=== PATIENT | female | born 1955 | race Caucasian/White ===

== ENCOUNTER 2019-02-01 19:57 | Inpatient (IN) | payer MEDICAID ==
[~2019-02-01] VITALS: Ht 175.3 cm; Wt 64.9 kg
--- NOTE | 2019-02-01 19:57 | NUR ---
Placed in room 01 . Placed on lunchroom monitor, blood pressure machine and pulse oximeter. To gown for exam. Side rails up. Report given to PONCHO BOWIE.
[2019-02-01 20:04] VITALS: BP_SYST 103
--- NOTE | 2019-02-01 20:30 | NUR ---
PT came to the ED from a SNF for SOB and mild distress. Per EMS, pt was stating 80 when they arrived. Started on 15 L nonrebreather. Pt was given a breathing treatment on the way to the ED. Pt is full code. Denies n/v/d or fever. No other complaints/injuries noted. Will cont. to monitor.
--- NOTE | 2019-02-01 20:35 | NUR ---
ER at bedside examining patient.
[2019-02-01] MEDS ORDERED: CALC-823 PO (20:57)
[2019-02-01] MEDS ORDERED: DEXT30DR6 EACH EYE (20:57)
[2019-02-01] MEDS ORDERED: DICL75TA5 PO (20:58)
[2019-02-01] MEDS ORDERED: CLON1TAB12 PO (20:58)
[2019-02-01] MEDS ORDERED: BUSP5TAB3 PO (20:59)
[2019-02-01] MEDS ORDERED: ASM110 INH (21:00)
[2019-02-01] MEDS ORDERED: MULT-1100 PO (21:00)
[2019-02-01] MEDS ORDERED: MOM PO (21:01)
[2019-02-01] MEDS ORDERED: BISA10SU61 RC (21:03)
[2019-02-01] MEDS ORDERED: CRAN450C PO (21:04)
[2019-02-01] MEDS ORDERED: ACET-2165 PO (21:04)
[2019-02-01] MEDS ORDERED: LORA10TA7 PO (21:05)
[2019-02-01] MEDS ORDERED: MONT10TA22 PO (21:06)
[2019-02-01] MEDS ORDERED: ESCI5TAB PO (21:07)
[2019-02-01] MEDS ORDERED: MELA3TAB PO (21:10)
[2019-02-01] MEDS ORDERED: ZOLP10TA2 PO (21:11)
[2019-02-01] MEDS ORDERED: QUET200T PO (21:11)
[2019-02-01] MEDS ORDERED: BEN50 PO (21:12)
[2019-02-01] MEDS ORDERED: [UNRECOGNIZED DRUG - CODE] TP (21:14)
--- NOTE | 2019-02-01 21:14 | NUR ---
Medication reconciliation completed with information provided by [facility]. Any prior medication reconciliation on file was reviewed and corrected.
[2019-02-01] MEDS ORDERED: VANCOMYCIN HCL 1,000 MG in D5W 250 ML IV ONE (21:15)
[2019-02-01] MEDS ORDERED: NS 1000 ML IV.SOLN IV ONE (21:15)
[2019-02-01] MEDS ORDERED: VANCOMYCIN HCL 1000 MG/VIAL IV ONE (21:31)
[2019-02-01 21:56] LABS: HEMATOCRIT 22.6 % (36-48); INR 1.4 (0.8-1.2); MEAN CORPUSCULAR HEMOGLOBIN 24 pg (27-31); MEAN CORPUSCULAR HGB CONC 31 % (32-36); MEAN CORPUSCULAR VOLUME 79 fL (79.0-98.0); PLATELET COUNT (AUTO) 370 K/uL (130-430); PROTHROMBIN TIME 13.8 SECS (9.5-12.5); RED BLOOD CELL COUNT(AUTO) 2.85 MIL/uL (4.2-6.2); RED CELL DISTRIBUTION WIDTH 18.6 % (9.0-15.0)
[2019-02-01 21:59] LABS: HEMOGLOBIN 6.9 g/dL (12.0-16.0); WHITE BLOOD COUNT (AUTO) 35.5 K/uL (4.8-10.8)
--- NOTE | 2019-02-01 22:00 | NUR ---
Pt resting in bed, pt on cardiac and O2 monitor. Will cont. to monitor.
[2019-02-01 22:01] LABS: ANION GAP 11 (5-15); CALCIUM 7.6 mg/dL (8.4-11.0); CHLORIDE 101 mmol/L (98-107); CREATININE 3.11 mg/dL (0.55-1.30); GLUCOSE 177 mg/dL (70-99); POTASSIUM 5.3 mmol/L (3.5-5.1); SODIUM SERUM 133 mmol/L (136-145); UREA NITROGEN, BLOOD 64 mg/dL (8-21)
[2019-02-01 22:03] LABS: GFR AFRICAN AMERICAN 20 mL/min (>90)
[2019-02-01 22:09] LABS: TOTAL BILIRUBIN 0.3 mg/dL (0.0-1.0)
[2019-02-01 22:10] LABS: ALANINE AMINOTRANSFERASE 8 U/L (12-78); ALCOHOL, BLOOD < 3 mg/dL (<10); ASPARTATE AMINOTRANSFERASE 30 U/L (10-37)
[2019-02-01 22:15] LABS: ATYPICAL LYMPHOCYTES % 0 % (0-0); BAND % (MANUAL) 8 % (0-6); BASOPHILS % (MANUAL) 0 % (0-2); EOSINOPHILS % (MANUAL) 0 % (0-7); LYMPHOCYTES % (MANUAL) 2 % (20-46); METAMYELOCYTES % 2 % (0-0); MONOCYTES % (MANUAL) 1 % (0-11); MYELOCYTES % 2 % (0-0)
[2019-02-01 22:43] LABS: BILIRUBIN,URINE 1+ (NEGATIVE); BLOOD, URINE NEGATIVE (NEGATIVE); CLARITY/URINE HAZY (CLEAR); COLOR,URINE YELLOW (YELLOW); GLUCOSE,URINE NEGATIVE (NEGATIVE); KETONES,URINE NEGATIVE (NEGATIVE); LEUKOCYTE ESTERASE ,URINE 3+ (NEGATIVE); NITRITE, URINE NEGATIVE (NEGATIVE); PH,URINE 8.5 (5.0-8.0); PROTEIN URINE 2+ (NEGATIVE); UROBILINOGEN,URINE 0.2 (0.2-1.0)
[2019-02-01 22:54] LABS: BACTERIA,URINE MANY /HPF (None Seen); RBC,URINE 0-3 /HPF (0-3); WBC,URINE >100 /HPF (0-3)
[2019-02-01 23:04] LABS: BARBITURATE, URINE NEGATIVE (NEG <=200); BENZODIAZEPINE, URINE POSITIVE (NEG <=150); CANNABINOID, URINE NEGATIVE (NEG <=50); COCAINE, URINE NEGATIVE (NEG <=150); METHAMPHETAMINES SCREEN,URINE NEGATIVE (NEG <=500); OPIATE, URINE NEGATIVE (NEG <=100); PHENCYCLIDINE SCREEN,URINE NEGATIVE (NEG <=25); UR TRICYCLIC ANTIDEPRESSANTS POSITIVE (NEG <=300); URINE AMPHETAMINE NEGATIVE (NEG <=500); URINE METHADONE NEGATIVE (NEG <=200); URINE OXYCODONE SCREEN NEGATIVE (NEG <=100); URINE PROPOXYPHENE SCREEN NEGATIVE (NEG <=300)
--- NOTE | 2019-02-01 23:30 | NUR ---
Patient will be admitted to care of Dr. Shelby. Admitted to ICU unit. Will go to room ICU 4. Belongings list completed. Summary report printed. Report will be given at bedside.
[2019-02-01 23:35] VITALS: BP_SYST 155
--- NOTE | 2019-02-01 23:40 | NUR ---
ICU ADMISSION Pt is awake but confused, unable to follow commands. O2 via NRB at 15L. ST noted on monitor. Javed catheter in place and draining to gravity. IV 22G to RW and IV 22G to LFA with IVF infusing. Multiple dry scabs noted to upper and lower extremities. Skin intact. Safety precautions in place, call light within reach. Will continue to monitor.
--- NOTE | 2019-02-01 23:45 | NUR ---
Transfer to ICU via ACLS protocol. Licensed nurse present. IV present no signs or symptoms of infiltration.
[2019-02-01 23:50] VITALS: BP_SYST 155
[2019-02-02] VITALS (9 sets, daily range): BP systolic 70–146
--- NOTE | 2019-02-02 00:15 | NUR ---
IV catheter kinked to LFA, IVF unable to infuse. IV catheter removed fully intact. Will reattempt new IV insertion.
--- NOTE | 2019-02-02 00:22 | NUR ---
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
--- NOTE | 2019-02-02 00:24 | NUR ---
REASON FOR CONSULT: [employer] MACHINE WAS CONSULT CALLED: YES SPOKE WITH DEJON FROM [employer] @ [id number] IS AWARE OF THE CONSULT
[2019-02-02] MEDS ORDERED: metroNIDAZOLE 500 mg/NS 100 ML IV SCH (00:30)
[2019-02-02] MEDS ORDERED: ZOLPIDEM TARTRATE 5 MG TABLET PO PRN (00:30)
[2019-02-02] MEDS ORDERED: ACETAMINOPHEN 325 MG TABLET PO PRN (00:30)
[2019-02-02] MEDS ORDERED: BISACODYL 10 MG/SUPPOSITORY RC PRN (00:30)
[2019-02-02] MEDS: D5/0.45 NS 1,000 ML IV SCH ×2 (00:30→07:00)
[2019-02-02] MEDS ORDERED: DIPHENHYDRAMINE HCL 50 MG CAPSULE PO PRN (00:30)
[2019-02-02] MEDS ORDERED: LORazepam 2 MG/ML VIAL IVP ONE (00:30)
--- NOTE | 2019-02-02 00:30 | NUR ---
Dr. Shelby here examining patient. aware of patients current condition. New orders received.
[2019-02-02] MEDS ORDERED: LORazepam 2 MG/ML VIAL ONE (00:35)
[2019-02-02] MEDS ORDERED: PANTOPRAZOLE SODIUM 40 MG/VIAL (PROTONIX) IVP SCH (00:45)
[2019-02-02] MEDS ORDERED: HYDROmorphone 2 MG/ML VIAL IVP PRN (00:45)
[2019-02-02] MEDS ORDERED: metroNIDAZOLE 500 mg/NS 100 ML IV ONE (01:44)
[2019-02-02] MEDS ORDERED: CLINDAMYCIN 600 mg/50mL D5W 50 ML IV ONE (01:44)
[2019-02-02] MEDS: CLINDAMYCIN 600 MG in D5W 50 ML IV SCH ×2 (01:56→08:34)
--- NOTE | 2019-02-02 02:09 | NUR ---
CONSULT CALLED FOR DR BERRY SPOKE WITH DEJON AT [employer] REASON FOR CONSULT SEPSIS
[2019-02-02] MEDS ORDERED: PANTOPRAZOLE SODIUM 40 MG/VIAL (PROTONIX) ONE (02:14)
--- NOTE | 2019-02-02 02:15 | NUR ---
Multiple IV insertions attempted, but unsuccessful. Will continue to reattempt.
--- NOTE | 2019-02-02 02:30 | NUR ---
NG tube placement attempted, but unsuccessful. Will continue to attempt.
--- NOTE | 2019-02-02 03:00 | NUR ---
IV PLACEMENT: # 22 gauge angiocath placed to left leg. Use of asceptic technique. Opsite placed over site. Blood return noted. Flushed with 10 cc of normal saline. No evidence of infiltration noted. Patient tolerated well.
--- NOTE | 2019-02-02 04:00 | NUR ---
NG tube placement reattempted, but unsuccessful. Will continue to attempt.
--- NOTE | 2019-02-02 04:25 | NUR ---
Pt desaturation. SPO2 in 80's. RR labored. RT paged to draw stat ABG's. Will continue to monitor.
--- NOTE | 2019-02-02 04:35 | NUR ---
Spoke to Dr. Heron MD made aware of patients decreased BP. Orders for Levophed to be started. Will carry out order.
--- NOTE | 2019-02-02 04:45 | NUR ---
IV PLACEMENT: # 22 gauge angiocath placed to LFA. Use of asceptic technique. Opsite placed over site. Blood return noted. Flushed with 10 cc of normal saline. No evidence of infiltration noted. Patient tolerated well.
[2019-02-02] MEDS ORDERED: NOREPINEPHRINE 4 MG/4 ML VIAL IV ONE ×2 (04:47→07:35)
--- NOTE | 2019-02-02 04:50 | NUR ---
LEVOPHED DRIP started.
[2019-02-02] MEDS: NOREPINEPHRINE BITARTRATE 4 MG in D5W 246 ML IV PRN ×2 (04:52→07:33)
--- NOTE | 2019-02-02 05:15 | NUR ---
ER MD PORTER at bedside for intubation. Shravan RT and Junior REYES at bedside.
--- NOTE | 2019-02-02 05:25 | NUR ---
After five attempts to intubate, ER MD PORTER was able to successfully intubate. SPO2 in 90's. Will continue to monitor.
--- NOTE | 2019-02-02 06:00 | NUR ---
NG tube placement reattempted, but unsuccessful. Will continue to attempt.
--- NOTE | 2019-02-02 06:25 | NUR ---
Dr. Villa at bedside examining patient and attempting to insert NG tube.
--- NOTE | 2019-02-02 06:45 | NUR ---
Multiple attempts made by Dr. Villa for NG insertion but unsuccessful.
--- NOTE | 2019-02-02 07:20 | NUR ---
AM ASSESSMENT Pt received from Night RN using SBAR. Pt is intubated with vent settings of AC14, TV 450, FiO2 100%, PEEP 5. Pt received without a blood pressure reading on in room monitor due to low blood pressure, but confirmed pulse with manual check. Dr. Villa is at bedside with pt. Will continue to closely monitor.
[2019-02-02] MEDS ORDERED: PEG 400/HYPROMELLOSE/GLYCERIN 15 ML DROPS OP PRN (08:00)
[2019-02-02] MEDS ORDERED: ETOMIDATE 20 MG/ 10 ML VIAL (AMIDATE) IVP ONE (08:41)
[2019-02-02] MEDS ORDERED: SUCCINYLCHOLINE CHLORIDE 20 MG/ML(QUELICIN) IVP ONE (08:41)
[2019-02-02] MEDS ORDERED: CITALOPRAM HYDROBROMIDE 20 MG TABLET PO SCH (09:00)
[2019-02-02] MEDS ORDERED: clonazePAM 0.5 MG TABLET PO SCH (09:00)
[2019-02-02] MEDS ORDERED: LORATADINE 10 MG TABLET PO SCH (09:00)
[2019-02-02] MEDS ORDERED: MILK OF MAGNESIA 30 ML UDC PO SCH (09:00)
[2019-02-02] MEDS ORDERED: CALCIUM CARBONATE/VITAMIN D3 1 TAB TABLET PO SCH (09:00)
[2019-02-02] MEDS ORDERED: busPIRone HCL 5 MG TABLET PO SCH (09:00)
[2019-02-02] MEDS ORDERED: DICLOFENAC SODIUM 25 MG TABLET.DR PO SCH (09:00)
--- NOTE | 2019-02-02 09:11 | NUR ---
PATIENT WENT INTO CARDIO-PULMONARY ARREST, CODE BLUE CALLED. CPR INITIATED, ACLS MEDS GIVEN. DR. GREGORIO AT BEDSIDE.
--- NOTE | 2019-02-02 09:12 | NUR ---
Central line Central line placed to right femoral by Dr. Gordon using sterile technique. Triple lumen flushed with 10cc NS. Sutured to right leg, biopatch placed and tegaderm. Pt heart rate was 58 at start of procedure and reduced to 33. Unable to palpate femoral pulse, unable to read cardioid pulse via ultrasound. Pt legs were moddled prior to procedure. 1mg epi given IVP via femoral line and CPR initiated. Code Blue started at this time.
--- NOTE | 2019-02-02 09:40 | NUR ---
Pronouncement Pronouncement of by Dr. Gordon at pts bedside. Next of Kin Bennett called to make aware. Catrina from Social work notified to assist with placement of pt.
--- NOTE | 2019-02-02 09:42 | NUR ---
[facility] Spoke to [facility] referral # [id number], pt is not a candidate.
--- NOTE | 2019-02-02 09:45 | NUR ---
MD NOTIFICATION DR. RIGGS NOTIFIED OF PT EXPIRATION AT 0934.
--- NOTE | 2019-02-02 09:46 | NUR ---
Director Critical Care's Office Spoke Clerk Maximilian pt is not a [facility] case.
--- NOTE | 2019-02-02 09:50 | NUR ---
Post Mortem Care Provided pt with post mortem care, removal of all lines and tubbing. Placed in body bag with appropriate tags.
--- NOTE | 2019-02-02 09:58 | NUR ---
DR. MASTIUM NOTIFIED OF PATIENT EXPIRATION.
--- NOTE | 2019-02-02 10:00 | NUR ---
SPOKE TO INGRID IFNN (FRIEND) RE: PATIENT EXPIRATION
[2019-02-02] MEDS ORDERED: QUEtiapine FUMARATE 100 MG TABLET PO SCH (21:00)
[2019-02-02] MEDS ORDERED: LEVOFLOXACIN 250 MG/D5W 50 ML IV SCH (22:00)
== END 2019-02-02 09:34 | disposition expired | DRG 720 ==
LOC: SED 19:57 → SIC 22:53
PROVIDERS: ADMIT Family Medicine; ATTEND Family Medicine
PROC: 30233N1 Transfusion of Nonautologous Red Blood Cells into Peripheral Vein, Percutaneous Approach (ICD-10-PCS; principal; 2019-02-02)
PROC: 5A1935Z Respiratory Ventilation, Less than 24 Consecutive Hours (ICD-10-PCS; 2019-02-02)
PROC: 0BH17EZ Insertion of Endotracheal Airway into Trachea, Via Natural or Artificial Opening (ICD-10-PCS; 2019-02-02)
PROC: 06HY33Z Insertion of Infusion Device into Lower Vein, Percutaneous Approach (ICD-10-PCS; 2019-02-02)
DX: A41.9 Sepsis, unspecified organism (principal); E43 Unspecified severe protein-calorie malnutrition; K27.5 Chronic or unspecified peptic ulcer, site unspecified, with perforation; R65.21 Severe sepsis with septic shock; G93.41 Metabolic encephalopathy; N17.9 Acute kidney failure, unspecified; F03.90 Unspecified dementia, unspecified severity, without behavioral disturbance, psychotic disturbance, mood disturbance, and anxiety; I46.9 Cardiac arrest, cause unspecified; D64.9 Anemia, unspecified; F17.200 Nicotine dependence, unspecified, uncomplicated; F20.9 Schizophrenia, unspecified; I10 Essential (primary) hypertension; K74.60 Unspecified cirrhosis of liver; Z88.0 Allergy status to penicillin; Z79.899 Other long term (current) drug therapy; Z91.011 Allergy to milk products; Z91.013 Allergy to seafood; Z68.21 Body mass index [BMI] 21.0-21.9, adult
CPT/HCPCS: 36415; 36600; 70450-TC; 71045; 80053; 80307; 81000-TC; 82550-TC; 82803-TC; 83605; 83880; 84484; 85007; 85027; 85610-TC; 86886; 86900; 86901; 86920; 87040-TC; 87081; 87086; 87186-TC; 92950; 93005; 94003; 94640; 96361; 96365; 96367; 99285; C1751; C9113; G0482; J0330; J1170; J1956; J2060; J3370; J3490; J7030; J7050; J7060; P9021